=== PATIENT | male | born 1975 | race Two or more races ===

== ENCOUNTER 2025-07-10 17:40 | Emergency (ER) | payer OTHER ==
[~2025-07-10] VITALS: Ht 177.8 cm; Wt 96.6 kg
[2025-07-10 19:00] LABS: PLATELET COUNT (AUTO) 266 K/uL (150-450); RED BLOOD CELL COUNT(AUTO) 4.72 MIL/uL (4.5-6.0); RED CELL DISTRIBUTION WIDTH 13.3 % (11.5-15.0); WHITE BLOOD COUNT (AUTO) 15.6 K/uL (4.3-11.0)
[2025-07-10 19:06] LABS: CALCIUM, SERUM 8.5 mg/dL (8.5-10.1); CREATININE 1.4 mg/dL (0.6-1.3); SODIUM SERUM 134.0 mmol/L (136-145); UREA NITROGEN, BLOOD 17.0 mg/dL (7-18)
[2025-07-10] MEDS ORDERED: ACETAMINOPHEN 325 MG TABLET ONE (19:07)
[2025-07-10 19:12] LABS: ASPARTATE AMINOTRANSFERASE 19.0 U/L (15-37); TOTAL PROTEIN, SERUM 7.9 g/dL (6.4-8.2)
[2025-07-10] MEDS: ACETAMINOPHEN 325 MG TABLET PO ONE (19:13)
[2025-07-10 20:23] VITALS: BP 139/80; TEMP 98.7; O2SAT 98
[2025-07-11 03:40] LABS: APPEARANCE,URINE CLEAR (CLEAR); BLOOD, URINE NEGATIVE Ery/uL (NEGATIVE); LEUKOCYTE ESTERASE ,URINE NEGATIVE (NEGATIVE); NITRITE, URINE NEGATIVE (NEGATIVE); UGLUCOSE NEGATIVE (NEGATIVE)
[2025-07-11 04:08] LABS: ADD URINE CULTURE YES; SQUAMOUS EPITHELIAL CELL,UR Few /HPF (None Seen)
== END 2025-07-10 20:24 | disposition home or self-care (01) ==
LOC: ER 18:20
DX: J06.9 Acute upper respiratory infection, unspecified (principal); M79.651 Pain in right thigh
CPT/HCPCS: 36415; 71045-TC; 80053-TC; 81001; 85025-TC